=== PATIENT | female | born 1950 | race Hispanic/Latino ===

== ENCOUNTER 2018-05-13 16:11 | Emergency (ER) | payer MEDICARE ==
[2018-05-13] MEDS ORDERED: KETOROLAC TROMETHAMINE 30MG/ML ONE (16:50)
[2018-05-13] MEDS ORDERED: HYDROCODONE/ACETAMINOPHEN 10/325 MG TAB ONE (16:50)
== END 2018-05-13 17:48 | disposition home or self-care (01) ==
LOC: EDH 16:11
DX: M54.5 Low back pain (principal); E78.5 Hyperlipidemia, unspecified; I10 Essential (primary) hypertension; I12.0 Hypertensive chronic kidney disease with stage 5 chronic kidney disease or end stage renal disease; E11.22 Type 2 diabetes mellitus with diabetic chronic kidney disease; N18.6 End stage renal disease; Z79.4 Long term (current) use of insulin; Z91.041 Radiographic dye allergy status
CPT/HCPCS: 72100; 96372; 99284; J1885

== ENCOUNTER 2018-05-28 09:35 | Emergency (ER) | payer MEDICARE ==
[2018-05-28 10:20] LABS: BASOPHILS % (AUTO) 0.5 % (0.0-5.0); EOSINOPHILS % (AUTO) 0.4 % (0.0-8.0); HEMATOCRIT 33.4 % (36-48); LYMPHOCYTES % (AUTO) 10.9 % (21.0-51.0); MEAN CORPUSCULAR HEMOGLOBIN 28.5 pg (27.0-33.0); MEAN CORPUSCULAR HGB CONC 32.9 g/dL (32.0-36.0); MEAN CORPUSCULAR VOLUME 86.6 fL (79-99); MONOCYTES % (AUTO) 3.9 % (3.0-13.0); NEUTROPHILS % (AUTO) 84.3 % (40.0-77.0); PLATELET COUNT (AUTO) 255 K/uL (130-400); RED BLOOD CELL COUNT(AUTO) 3.86 MIL/uL (4.00-5.50); WHITE BLOOD COUNT (AUTO) 14.5 K/uL (4.8-10.8)
[2018-05-28 10:26] LABS: CREATININE 2.1 mg/dL (0.5-1.5); POTASSIUM 4.3 mmol/L (3.5-5.1)
[2018-05-28 10:31] LABS: ALBUMIN 3.9 g/dL (3.5-5.0); BILIRUBIN,TOTAL 0.3 mg/dL (0.2-1.0); TOTAL PROTEIN, SERUM 9.5 g/dL (6.0-8.3)
[2018-05-28 12:32] LABS: BILIRUBIN,URINE NEGATIVE (NEGATIVE); COLOR,URINE YELLOW (YELLOW); GLUCOSE, URINE (UA) NEGATIVE (NEGATIVE); KETONES,URINE NEGATIVE (NEGATIVE); LEUKOCYTE ESTERASE ,URINE SMALL (NEGATIVE); NITRATE,URINE POSITIVE (NEGATIVE); OCCULT BLOOD,URINE NEGATIVE (NEGATIVE); PROTEIN,URINE TRACE (NEGATIVE); UROBILINOGEN,URINE 0.2 mg/dL (0.2-1.0)
[2018-05-28 12:44] LABS: APPEARANCE,URINE HAZY (CLEAR)
[2018-05-28 12:47] LABS: BACTERIA,URINE Many /HPF (None Seen); RBC,URINE 0-1 /HPF (0-1)
[2018-05-28 12:48] LABS: HYALINE CASTS, URINE 0-1 /LPF (0-1 /LPF); SQUAMOUS EPITHELIAL CELL,UR Rare /HPF (0-2)
[2018-05-28] MEDS ORDERED: ACETAMINOPHEN EXTRA STRENGTH 500 MG TABLET ONE (13:55)
[2018-05-28] MEDS ORDERED: DEXAMETHASONE SOD PHOSPHATE 10MG/ML 1ML VIAL ONE (15:56)
== END 2018-05-28 16:29 | disposition home or self-care (01) ==
LOC: EDH 09:35
DX: M06.9 Rheumatoid arthritis, unspecified (principal); M79.602 Pain in left arm; E10.22 Type 1 diabetes mellitus with diabetic chronic kidney disease; M35.00 Sjogren syndrome, unspecified; I12.0 Hypertensive chronic kidney disease with stage 5 chronic kidney disease or end stage renal disease; N18.6 End stage renal disease; E78.5 Hyperlipidemia, unspecified; Z79.4 Long term (current) use of insulin; Z91.041 Radiographic dye allergy status
CPT/HCPCS: 36415; 73060; 80053; 81001; 82550; 84484; 85025; 86140; 93005; 96374; 99285; J1100

== ENCOUNTER 2018-07-14 11:47 | Emergency (ER) | payer MEDICARE ==
[2018-07-14] MEDS ORDERED: DEXAMETHASONE SOD PHOSPHATE 10MG/ML 1ML VIAL ONE (12:13)
[2018-07-14] MEDS ORDERED: HYDROMORPHONE 1 MG/1 ML AMP ONE (12:14)
== END 2018-07-14 13:06 | disposition home or self-care (01) ==
LOC: EDH 11:47
DX: M35.00 Sjogren syndrome, unspecified (principal); I12.0 Hypertensive chronic kidney disease with stage 5 chronic kidney disease or end stage renal disease; E11.22 Type 2 diabetes mellitus with diabetic chronic kidney disease; N18.6 End stage renal disease; E78.5 Hyperlipidemia, unspecified; M19.90 Unspecified osteoarthritis, unspecified site; Z91.041 Radiographic dye allergy status; Z90.49 Acquired absence of other specified parts of digestive tract; Z90.710 Acquired absence of both cervix and uterus; Z98.890 Other specified postprocedural states; Z99.2 Dependence on renal dialysis
CPT/HCPCS: 93005; 96372 ×2; 99283; J1100; J1170

== ENCOUNTER 2020-06-06 13:12 | Emergency (ER) | payer MEDICARE ==
[~2020-06-06 13:12] MED LIST: AEC81 PO; AMLO-257 PO; ATOR10TA69 PO; DOXA2TAB2 PO; LABE100T5 PO; PRAS10TA9 PO
[2020-06-06] MEDS ORDERED: ONDANSETRON HCL 4 MG/2 ML VIAL ONE (13:46)
[2020-06-06 13:51] LABS: BASOPHILS % (AUTO) 0.3 % (0.0-5.0); HEMATOCRIT 32.5 % (36-48); LYMPHOCYTES % (AUTO) 16.5 % (21.0-51.0); MEAN CORPUSCULAR HEMOGLOBIN 29.8 pg (27.0-33.0); MEAN CORPUSCULAR HGB CONC 33.2 g/dL (32.0-36.0); MEAN CORPUSCULAR VOLUME 89.5 fL (79-99); MONOCYTES % (AUTO) 5.3 % (3.0-13.0); NEUTROPHILS % (AUTO) 76.3 % (40.0-77.0); PLATELET COUNT (AUTO) 288 K/uL (130-400); RED BLOOD CELL COUNT(AUTO) 3.63 MIL/uL (4.00-5.50); RED CELL DISTRIBUTION WIDTH 11.8 % (11.0-15.5); WHITE BLOOD COUNT (AUTO) 9.4 K/uL (4.8-10.8)
[2020-06-06 14:03] LABS: APPEARANCE,URINE Clear (CLEAR); BILIRUBIN,URINE Small (NEGATIVE); COLOR,URINE Dark Yellow (YELLOW); GLUCOSE, URINE (UA) Negative (NEGATIVE); KETONES,URINE 15 mg/dL (NEGATIVE); LEUKOCYTE ESTERASE ,URINE Trace (NEGATIVE); NITRATE,URINE Negative (NEGATIVE); OCCULT BLOOD,URINE Negative (NEGATIVE); PH,URINE 5.5 (5.0-8.0); PROTEIN,URINE POS 2+ mg/dL (NEGATIVE)
[2020-06-06 14:08] LABS: CREATININE 1.3 mg/dL (0.5-1.5)
[2020-06-06 14:10] LABS: INR 0.99 (0.85-1.15); PARTIAL THROMBOPLASTIN TIME 23.3 SEC (26.3-35.5); PROTHROMBIN TIME 10.7 SEC (9.6-11.6)
[2020-06-06 14:12] LABS: ALBUMIN 3.7 g/dL (3.5-5.0); BILIRUBIN,TOTAL 0.4 mg/dL (0.2-1.0); TOTAL PROTEIN, SERUM 7.8 g/dL (6.0-8.3)
[2020-06-06 14:20] LABS: BACTERIA,URINE Few /HPF (None Seen); MUCUS,URINE Many LPF (None Seen); SQUAMOUS EPITHELIAL CELL,UR Few /HPF (0-2)
== END 2020-06-06 15:59 | disposition home or self-care (01) ==
LOC: EDH 13:12
DX: K52.89 Other specified noninfective gastroenteritis and colitis (principal); R10.31 Right lower quadrant pain; M19.90 Unspecified osteoarthritis, unspecified site; I12.9 Hypertensive chronic kidney disease with stage 1 through stage 4 chronic kidney disease, or unspecified chronic kidney disease; E11.22 Type 2 diabetes mellitus with diabetic chronic kidney disease; N18.9 Chronic kidney disease, unspecified; E78.5 Hyperlipidemia, unspecified; Z90.49 Acquired absence of other specified parts of digestive tract; Z90.710 Acquired absence of both cervix and uterus; Z91.041 Radiographic dye allergy status
CPT/HCPCS: 36415; 74176; 80053; 81001; 82550; 83690; 84484; 85025; 85610; 85730; 93005; 96361; 96374; 99285; J2405

== ENCOUNTER 2022-08-27 10:46 | Emergency (ER) | payer MEDICARE ==
[~2022-08-27] VITALS: Ht 160 cm; Wt 75.3 kg
[~2022-08-27 10:46] MED LIST changes: -LABE100T5 PO; +LABE100T7 PO
[2022-08-27] MEDS ORDERED: KETOROLAC 30MG VIAL (30MG/ML) IM STA (15:44)
[2022-08-27 15:59] VITALS: BP 183/74
[2022-08-27] MEDS ORDERED: TRIAMCINOLONE ACETONIDE 40 MG/ML 1ML VIAL SQ ONE (16:00)
== END 2022-08-27 16:37 | disposition home or self-care (01) ==
LOC: EDH 10:46
DX: G89.29 Other chronic pain (principal); M54.9 Dorsalgia, unspecified; M19.90 Unspecified osteoarthritis, unspecified site; E11.9 Type 2 diabetes mellitus without complications; E78.00 Pure hypercholesterolemia, unspecified; I10 Essential (primary) hypertension; Z79.82 Long term (current) use of aspirin; Z79.899 Other long term (current) drug therapy; Z88.8 Allergy status to other drugs, medicaments and biological substances; Z90.49 Acquired absence of other specified parts of digestive tract; Z90.710 Acquired absence of both cervix and uterus
CPT/HCPCS: 99284; 74176; 96372 ×2; J3301; J1885

== ENCOUNTER 2022-10-03 23:27 | Observation (INO) | payer MEDICARE ==
[~2022-10-03] VITALS: Ht 167.6 cm; Wt 74.8 kg
[2022-10-04 00:31] LABS: CREATININE 1.7 mg/dL (0.5-1.5); POTASSIUM 4.5 mmol/L (3.5-5.1)
[2022-10-04 00:35] LABS: TOTAL PROTEIN, SERUM 6.2 g/dL (6.0-8.3)
[2022-10-04 00:36] LABS: BASOPHILS % (AUTO) 0.4 % (0.0-5.0); EOSINOPHILS % (AUTO) 7.7 % (0.0-8.0); HEMATOCRIT 29.3 % (36-48); LYMPHOCYTES % (AUTO) 14.3 % (21.0-51.0); MEAN CORPUSCULAR HEMOGLOBIN 30.9 pg (27.0-33.0); MEAN CORPUSCULAR HGB CONC 32.1 g/dL (32.0-36.0); MEAN CORPUSCULAR VOLUME 96.4 fL (79-99); MONOCYTES % (AUTO) 4.8 % (3.0-13.0); NEUTROPHILS % (AUTO) 71.9 % (40.0-77.0); PLATELET COUNT (AUTO) 204 K/uL (130-400); RED BLOOD CELL COUNT(AUTO) 3.04 MIL/uL (4.00-5.50); RED CELL DISTRIBUTION WIDTH 12.3 % (11.0-15.5); WHITE BLOOD COUNT (AUTO) 10.9 K/uL (4.8-10.8)
[2022-10-04] MEDS ORDERED: GOLY4L PO (01:24)
[2022-10-04] MEDS ORDERED: MORPHINE 2 MG SYG IVP ONE (01:30)
[2022-10-04] MEDS ORDERED: MAGNESIUM HYDROXIDE 30 ML/UDCUP PO SCH (01:30)
[2022-10-04 01:41] LABS: APPEARANCE,URINE CLEAR (CLEAR); BILIRUBIN,URINE NEGATIVE (NEGATIVE); COLOR,URINE LIGHT-YELLOW (YELLOW); GLUCOSE, URINE (UA) NEGATIVE (NEGATIVE); KETONES,URINE NEGATIVE (NEGATIVE); LEUKOCYTE ESTERASE ,URINE NEGATIVE Leu/uL (NEGATIVE); NITRATE,URINE NEGATIVE (NEGATIVE); OCCULT BLOOD,URINE NEGATIVE (NEGATIVE); PROTEIN,URINE 20 mg/dL (NEGATIVE); UROBILINOGEN,URINE 0.2 mg/dL (0.2-1.0)
[2022-10-04] MEDS ORDERED: ENOXAPARIN SODIUM 80 MG/0.8 ML SQ ONE (04:00)
[2022-10-04] MEDS ORDERED: ACETAMINOPHEN 325 MG TAB PO PRN (04:00)
[2022-10-04] MEDS ORDERED: DEXTROSE 5 % AND 0.9 % NACL 1,000 ML IV SCH (04:00)
[2022-10-04] MEDS ORDERED: ONDANSETRON 4MG INJ IVP PRN (04:00)
[2022-10-04] MEDS ORDERED: MORPHINE 2 MG SYG IVP PRN (04:00)
[2022-10-04] MEDS ORDERED: LABE200T7 PO (04:12)
[2022-10-04] MEDS ORDERED: SOLI10TA7 PO (04:12)
[2022-10-04] MEDS ORDERED: MEMA5TAB42 PO (04:12)
[2022-10-04] MEDS ORDERED: INSU100I21 SQ (04:12)
[2022-10-04] MEDS ORDERED: LINA145C PO (04:12)
[2022-10-04] MEDS ORDERED: PENI500T2 PO (04:12)
[2022-10-04] MEDS ORDERED: ATOR10 PO (04:12)
[2022-10-04] MEDS ORDERED: METF-445 PO (04:12)
[2022-10-04] MEDS ORDERED: HYDR-4153 PO (04:12)
[2022-10-04] MEDS ORDERED: PANTOPRAZOLE 40 MG/VIAL ONE (04:42)
[2022-10-04 07:28] LABS: BASOPHILS % (AUTO) 0.3 % (0.0-5.0); EOSINOPHILS % (AUTO) 6.2 % (0.0-8.0); HEMATOCRIT 30.2 % (36-48); LYMPHOCYTES % (AUTO) 12.9 % (21.0-51.0); MEAN CORPUSCULAR HEMOGLOBIN 30.7 pg (27.0-33.0); MEAN CORPUSCULAR HGB CONC 32.8 g/dL (32.0-36.0); MEAN CORPUSCULAR VOLUME 93.5 fL (79-99); MONOCYTES % (AUTO) 5.9 % (3.0-13.0); NEUTROPHILS % (AUTO) 73.7 % (40.0-77.0); PLATELET COUNT (AUTO) 203 K/uL (130-400); RED BLOOD CELL COUNT(AUTO) 3.23 MIL/uL (4.00-5.50); RED CELL DISTRIBUTION WIDTH 12.4 % (11.0-15.5); WHITE BLOOD COUNT (AUTO) 9.4 K/uL (4.8-10.8)
[2022-10-04 07:41] LABS: ALBUMIN 3.2 g/dL (3.5-5.0); CREATININE 1.3 mg/dL (0.5-1.5); POTASSIUM 4.5 mmol/L (3.5-5.1); TOTAL PROTEIN, SERUM 6.5 g/dL (6.0-8.3)
[2022-10-04 07:52] LABS: HEMOGLOBIN A1C 7.7 % (4.0-6.0)
[2022-10-04] MEDS: LACTULOSE 20 GM/30 ML UDCUP PO SCH ×4 (09:00→20:37)
[2022-10-04] MEDS ORDERED: AMLODIPINE 5 MG TAB PO ONE (11:00)
[2022-10-04] MEDS: HYDRALAZINE 25MG TABLET PO SCH ×2 (11:01→20:36)
[2022-10-04 15:33] VITALS: BP 186/72
[2022-10-04 19:14] VITALS: BP 168/74
[2022-10-04] MEDS: MEMANTINE HCL 5 MG TABLET PO SCH (20:37)
[2022-10-04] MEDS: ATORVASTATIN 10 MG TABLET PO SCH (20:37)
[2022-10-04] MEDS: METFORMIN HCL 850 MG TABLET PO SCH (20:37)
[2022-10-04] MEDS: LABETALOL HCL 200 MG TABLET PO SCH (20:37)
[2022-10-04] MEDS: INSULIN GLARGINE 100 UNITS/ML 10 ML VIAL SQ SCH (20:38)
[2022-10-04 22:30] VITALS: BP 151/69
[2022-10-05 02:26] VITALS: BP 162/74
[2022-10-05 04:25] LABS: HEMATOCRIT 31.8 % (36-48); MEAN CORPUSCULAR HEMOGLOBIN 30.9 pg (27.0-33.0); MEAN CORPUSCULAR HGB CONC 31.8 g/dL (32.0-36.0); MEAN CORPUSCULAR VOLUME 97.2 fL (79-99); RED BLOOD CELL COUNT(AUTO) 3.27 MIL/uL (4.00-5.50); RED CELL DISTRIBUTION WIDTH 12.3 % (11.0-15.5); WHITE BLOOD COUNT (AUTO) 8.6 K/uL (4.8-10.8)
[2022-10-05 04:49] LABS: ALANINE AMINOTRANSFERASE 142 U/L (12-78); ALBUMIN 3.1 g/dL (3.5-5.0); ASPARTATE AMINOTRANSFERASE 84 U/L (10-37); CARBON DIOXIDE 27 mmol/L (21-32); CHLORIDE 105 mmol/L (101-111); CREATININE 1.1 mg/dL (0.5-1.5); GLOMERULAR FILTR. RATE CALC 52 mL/min (>60); GLUCOSE,RANDOM 119 mg/dL (70-105); POTASSIUM 4.1 mmol/L (3.5-5.1); SODIUM SERUM 139 mmol/L (136-145); TOTAL PROTEIN, SERUM 6.5 g/dL (6.0-8.3); UREA NITROGEN, BLOOD 16 mg/dL (7-18)
[2022-10-05 04:58] LABS: LIPASE < 50 U/L (114-286)
[2022-10-05 07:26] VITALS: BP 162/72
[2022-10-05] MEDS: LABETALOL HCL 200 MG TABLET PO SCH ×2 (08:29→21:31)
[2022-10-05] MEDS: LACTULOSE 20 GM/30 ML UDCUP PO SCH (08:29)
[2022-10-05] MEDS: AMLODIPINE 5 MG TAB PO SCH (08:29)
[2022-10-05] MEDS: HYDRALAZINE 25MG TABLET PO SCH ×3 (08:29→21:31)
[2022-10-05] MEDS: INSULIN GLARGINE 100 UNITS/ML 10 ML VIAL SQ SCH ×2 (08:47→21:33)
[2022-10-05] MEDS: **HM**(Linaclotide (Linzess) 145 MCG PO SCH (09:00)
[2022-10-05] MEDS: MEMANTINE HCL 5 MG TABLET PO SCH ×2 (09:07→21:34)
[2022-10-05] MEDS: METFORMIN HCL 850 MG TABLET PO SCH (09:07)
[2022-10-05] MEDS: ENOXAPARIN SODIUM 30 MG/0.3 ML SQ SCH (09:07)
[2022-10-05 12:10] VITALS: BP 147/66
[2022-10-05] MEDS ORDERED: LACTULOSE 20 GM/30 ML UDCUP PO PRN (14:30)
[2022-10-05 16:00] VITALS: BP 166/67
[2022-10-05 19:50] VITALS: BP 149/68
[2022-10-05] MEDS: ATORVASTATIN 10 MG TABLET PO SCH (21:31)
[2022-10-06 00:03] VITALS: BP 147/70
[2022-10-06 03:27] VITALS: BP 146/74
[2022-10-06 06:22] LABS: HEMATOCRIT 30.3 % (36-48); MEAN CORPUSCULAR HEMOGLOBIN 30.6 pg (27.0-33.0); MEAN CORPUSCULAR HGB CONC 32.7 g/dL (32.0-36.0); MEAN CORPUSCULAR VOLUME 93.5 fL (79-99); RED BLOOD CELL COUNT(AUTO) 3.24 MIL/uL (4.00-5.50); RED CELL DISTRIBUTION WIDTH 12.1 % (11.0-15.5); WHITE BLOOD COUNT (AUTO) 8.8 K/uL (4.8-10.8)
[2022-10-06 07:19] LABS: MAGNESIUM 1.9 mg/dL (1.80-2.40); POTASSIUM 4.1 mmol/L (3.5-5.1); TOTAL PROTEIN, SERUM 6.4 g/dL (6.0-8.3)
[2022-10-06 07:40] VITALS: BP 164/76
[2022-10-06] MEDS: METFORMIN HCL 850 MG TABLET PO SCH ×2 (08:00→09:11)
[2022-10-06] MEDS: **HM**(Linaclotide (Linzess) 145 MCG PO SCH (09:00)
[2022-10-06] MEDS: LABETALOL HCL 200 MG TABLET PO SCH (09:10)
[2022-10-06] MEDS: ENOXAPARIN SODIUM 30 MG/0.3 ML SQ SCH (09:10)
[2022-10-06] MEDS: MEMANTINE HCL 5 MG TABLET PO SCH (09:11)
[2022-10-06] MEDS: HYDRALAZINE 25MG TABLET PO SCH ×2 (09:11→11:00)
[2022-10-06] MEDS: AMLODIPINE 5 MG TAB PO SCH (09:11)
[2022-10-06] MEDS: INSULIN GLARGINE 100 UNITS/ML 10 ML VIAL SQ SCH (09:19)
[2022-10-06 11:31] VITALS: BP 153/68
== END 2022-10-06 15:35 | disposition home or self-care (01) ==
LOC: EDH 23:27 → INTOOBSV 10-04 01:50 → EDHIP 10-04 01:50 → WSH 10-04 15:25
PROVIDERS: ADMIT Internal Medicine Infectious Disease; ATTEND Internal Medicine Infectious Disease
DX: K59.00 Constipation, unspecified (principal); K85.90 Acute pancreatitis without necrosis or infection, unspecified; E86.0 Dehydration; N17.9 Acute kidney failure, unspecified; R10.9 Unspecified abdominal pain; R79.89 Other specified abnormal findings of blood chemistry; D72.829 Elevated white blood cell count, unspecified; I10 Essential (primary) hypertension; E11.9 Type 2 diabetes mellitus without complications; E78.00 Pure hypercholesterolemia, unspecified; F03.90 Unspecified dementia, unspecified severity, without behavioral disturbance, psychotic disturbance, mood disturbance, and anxiety; Z90.710 Acquired absence of both cervix and uterus; Z79.899 Other long term (current) drug therapy; Z98.890 Other specified postprocedural states; Z90.49 Acquired absence of other specified parts of digestive tract; Z79.82 Long term (current) use of aspirin
CPT/HCPCS: 99285; 74176; 93005; 80053 ×4; 96374; 96372 ×3; 96361; 96375; 83036; 84484; 83690 ×2; 85025 ×2; 82948 ×7; 81003; 36415 ×4; 83735 ×2; 85027 ×2; 76700; J2405; J1650 ×3; C9113; G0378 ×29; J7042

== ENCOUNTER → 2022-11-10 | Outpatient (CLI) | payer MEDICARE ==
[~2022-11-10] MED LIST changes: +ATOR10 PO; +GADOTERATE MEGLUMINE 5 MMOL/10 ML VIAL IV ONE; +GOLY4L PO; +HYDR-4153 PO; +INSU100I22 SQ; +LABE200T7 PO; +LINA145C PO; +MEMA5TAB42 PO; +METF-445 PO; +PENI500T2 PO; +SOLI10TA7 PO
== END | disposition home or self-care (01) ==
LOC: RAH 07:44
PROVIDERS: ATTEND Internal Medicine Gastroenterology
DX: R94.5 Abnormal results of liver function studies (principal); Z90.49 Acquired absence of other specified parts of digestive tract
CPT/HCPCS: 74183; A9575

== ENCOUNTER → 2023-01-26 | Outpatient (CLI) | payer MEDICARE ==
[~2023-01-26] MED LIST changes: -GADOTERATE MEGLUMINE 5 MMOL/10 ML VIAL IV ONE
== END | disposition home or self-care (01) ==
LOC: RAH 09:27
PROVIDERS: ATTEND Physical Medicine & Rehabilitation
DX: M48.062 Spinal stenosis, lumbar region with neurogenic claudication (principal); M47.816 Spondylosis without myelopathy or radiculopathy, lumbar region
CPT/HCPCS: 72148

== ENCOUNTER 2024-12-19 07:01 | Emergency (ER) | payer MEDICARE ==
[~2024-12-19] VITALS: Ht 160 cm; Wt 62.6 kg
[~2024-12-19 07:01] MED LIST changes: -HYDR-4153 PO; +HYDR25TA67 PO; +MEMA5TAB16 PO; -MEMA5TAB42 PO
--- NOTE | 2024-12-19 07:28 | ERN ---
General Chief Complaint: Abdominal Pain Stated Complaint: ABDOMINAL PAIN Time Seen by MD: 07:04 Source: patient History of Present Illness Initial Comments Patient is a 74-year-old female coming in with the abdominal diarrhea. Patient states that she has been going to the restroom several times loose stools. No fever or chills no nausea or vomiting. Allergies: Coded Allergies: Iodine and Iodide Containing Produc (Verified Allergy, Unknown, 05/31/20) Home Meds Active Scripts Peg 3350/Na Sulf,Bicarb,Cl/KCl (Golytely/Colyte Soln) 1 Ml Soln, 4000 ML PO ONCE, #4000 ML Prov:YAZMIN KNOX MD 10/04/22 Amlodipine Besylate (Amlodipine Besylate) 5 Mg Tablet, 7.5 MG PO DAILY for 90 Days, #135 TAB 3 Refills Prov:AIRAM VALDES MD 06/02/20 Doxazosin Mesylate (Doxazosin Mesylate) 2 Mg Tablet, 2 MG PO DAILY for 90 Days, #90 TAB 3 Refills Prov:AIRAM VADLES MD 06/02/20 Labetalol HCl (Labetalol HCl) 100 Mg Tablet, 100 MG PO BID for 90 Days, #180 TAB 3 Refills Prov:AIRAM VALDES MD 06/02/20 Aspirin (ASPIRIN 81 MG ECTAB) 81 Mg Ectab, 81 MG PO DAILY for 90 Days, #90 TAB.EC 3 Refills Prov:AIRAM VALDES MD 06/02/20 Prasugrel HCl (Prasugrel HCl) 10 Mg Tablet, 10 MG PO DAILY for 90 Days, #90 TAB 3 Refills Prov:AIRAM VALDES MD 06/02/20 Atorvastatin Calcium (Atorvastatin Calcium) 10 Mg Tablet, 10 MG PO DAILY for 90 Days, #90 TAB 3 Refills Prov:AIRMA VALDES MD 06/02/20 Reported Medications Labetalol HCl (Labetalol HCl) 200 Mg Tablet, 200 MG PO BID, TAB 10/04/22 Hydralazine HCl (Hydralazine HCl) 25 Mg Tablet, 25 MG PO BID, TAB 10/04/22 Penicillin V Potassium (Penicillin V Potassium) 500 Mg Tablet, 500 MG PO [id number], TAB 10/04/22 Metformin HCl (Metformin HCl) 850 Mg Tablet, 850 MG PO BID, TAB 10/04/22 Linaclotide (Linzess) 145 Mcg Capsule, 145 MCG PO DAILY, CAP 10/04/22 Memantine HCl (Memantine HCl) 5 Mg Tablet, 5 MG PO BID, TAB 10/04/22 Solifenacin Succinate (Solifenacin Succinate) 10 Mg Tablet, 10 MG PO DAILY, TAB 10/04/22 Atorvastatin Calcium (LIPITOR) 10 Mg Tab, 10 MG PO HS, TAB 10/04/22 Insulin Detemir (Levemir Flextouch) 100 Unit/1 Ml Insuln.pen, 30 UNIT SQ BID, SYRINGE 10/04/22 Past Medical History Past Medical History: CAD, Diabetes-Type II, Hypertension Medical History Other: Dementia Past Surgical History: Unknown Family History Family History: HTN Social History Social History: Negative, Lives with family ROS Dictation CONSTITUTIONAL: No chills, no fever, no weakness, no diaphoresis, no malaise. HEAD/FACE: No signs of trauma. EENT: No eye pain, no blurred vision, no tearing, no double vision, no ear pain, no ear discharge, no nose pain, no nasal congestion, no throat pain, no throat swelling, no mouth pain. RESPIRATORY: No cough, no orthopnea, no SOB, no stridor, no wheezing. CARDIOVASCULAR: No chest pain, no edema, no palpitations, no syncope. GASTROINTESTINAL/ABDOMINAL: No abdominal pain, no constipation, no diarrhea, no nausea, no vomiting. GENITOURINARY: No abnormal discharge, no dysuria, no frequent urination, no hematuria. No complaints of pain in the genitals. MUSCULOSKELETAL: No back pain, no gout, no joint pain, no joint swelling, no muscle pain, no muscle stiffness, no neck pain. INTEGUMENTARY: No change in color, no change in hair/nails, no dryness, no lesion, no lumps, no rash. NEUROLOGICAL/PSYCH: No anxiety, not depressed, no emotional problem, no headache, no numbness, no pre-existing deficit, no history of seizures, no tremors, no weakness. HEMATOLOGIC/LYMPHATIC: Not anemic, no history of blood clots, no apparent bleeding, no bruising, glands not swollen. All Systems Negative, Except as Noted. Physical Exam Physical Exam Dictation VITAL SIGNS: Reviewed. GENERAL APPEARANCE: Alert, oriented x3, no acute distress, obese. HEAD AND FACE: Non-traumatic. EYES: PERRL, pink conjunctivas, eyelid no trauma, anterior chamber clear. EARS: Pinnas intact and no signs of trauma or erythema. Ear canals clear and no discharge. TMs no erythema. NOSE: No discharge, no bleeding. OROPHARYNX: Mouth normal, teeth no caries, tongue pink. Pharynx clear, no erythema. Tonsils no exudates, no abscesses noted. Mucous membrane moist. NECK: Supple, non-tender, no thyromegaly, no masses, no JVD, no bruits. BREAST: Deferred. CHEST: No tenderness, no crepitus, no paradoxical movement, no retractions. LUNGS: Clear, well-ventilated, symmetric, no rales, no wheezing, no rhonchi, no stridor, good breath sounds bilaterally. HEART: Regular rate, regular rhythm, no murmur, no gallops. VASCULAR: No peripheral edema. ABDOMEN: Soft, positive bowel sounds, nondistended, no guarding, nontender, no rebound, no masses no hepatomegaly, no splenomegaly, no Nguyen's sign, no hernias. RECTAL: Deferred. GENITAL: Deferred. NEUROLOGICAL: Normal speech, gross motor function intact, gross sensory function intact. MUSCULOSKELETAL: Neck nontender, full range of motion, back nontender, full range of motion. EXTREMITIES: Nontender, full range of motion. SKIN: Color pink, dry, no turgor, no rash, no lacerations, no abrasions, no contusions. LYMPHATICS: Deferred. Results Laboratory and Microbiology Lab and Micro Result Laboratory Tests Test 12/19/24 07:43 12/19/24 07:52 White Blood Count 9.6 K/uL (4.8-10.8) Red Blood Count 4.13 MIL/uL (4.00-5.50) Hemoglobin 12.9 g/dL (12.0-16.0) Hematocrit 39.7 % (36-48) Mean Corpuscular Volume 96.1 fL (79-99) Mean Corpuscular Hemoglobin 31.2 pg (27.0-33.0) Mean Corpuscular Hemoglobin Concent 32.5 g/dL (32.0-36.0) Red Cell Distribution Width 12.2 % (11.0-15.5) Platelet Count 223 K/uL (130-400) Mean Platelet Volume 10.5 fL (7.5-10.5) Immature Granulocyte % (Auto) 0.3 % (0-1) Neutrophils (%) (Auto) 80.7 % (40.0-77.0) H Lymphocytes (%) (Auto) 13.8 % (21.0-51.0) L Monocytes (%) (Auto) 4.5 % (3.0-13.0) Eosinophils (%) (Auto) 0.4 % (0.0-8.0) Basophils (%) (Auto) 0.3 % (0.0-5.0) Neutrophils # (Auto) 7.7 K/uL (1.8-7.7) Lymphocytes # (Auto) 1.3 K/uL (1.0-4.8) Monocytes # (Auto) 0.4 K/uL (0.1-1.0) Eosinophils # (Auto) 0.04 K/uL (0.00-0.70) Basophils # (Auto) 0.03 K/uL (0.00-0.20) Absolute Immature Granulocyte (auto 0.03 K/uL (0-1) Nucleated Red Blood Cells 0.0 % (0.0-0.19) Sodium Level 137 mmol/L (136-145) Potassium Level 3.4 mmol/L (3.5-5.1) L Chloride Level 102 mmol/L (101-111) Carbon Dioxide Level 27 mmol/L (21-32) Blood Urea Nitrogen 35 mg/dL (7-18) H Creatinine 1.5 mg/dL (0.5-1.0) H Glomerular Filtration Rate Calc 37 mL/min (>90) Random Glucose 170 mg/dL (70-105) H Total Calcium 9.8 mg/dL (8.5-10.1) Total Bilirubin 0.3 mg/dL (0.2-1.0) Aspartate Amino Transf (AST/SGOT) 24 U/L (10-37) Alanine Aminotransferase (ALT/SGPT) 35 U/L (12-78) Alkaline Phosphatase 120 U/L (50-136) Total Creatine Kinase 53 U/L (21-232) # Troponin I High Sensitivity < 4 ng/L (4-50) L Total Protein 8.1 g/dL (6.0-8.3) Albumin 4.3 g/dL (3.5-5.0) Lipase 31 U/L (16-77) Urine Color YELLOW (YELLOW) Urine Appearance CLEAR (CLEAR) Urine pH 5.5 (5.0-8.0) Urine Specific [place] 1.035 (1.001-1.031) Urine Protein 20 mg/dL (NEGATIVE) H Urine Glucose (UA) >=1000 mg/dL (NEGATIVE) H Urine Ketones NEGATIVE mg/dL (NEGATIVE) Urine Occult Blood NEGATIVE (NEGATIVE) Urine Nitrate NEGATIVE (NEGATIVE) Urine Bilirubin NEGATIVE mg/dL (NEGATIVE) Urine Urobilinogen 0.2 mg/dL (0.2-1.0) Urine Leukocyte Esterase 250 [place]/uL (NEGATIVE) H Urine RBC 2-5 /HPF (0-1) H Urine WBC 6-10 /HPF (0-1) H Urine Squamous Epithelial Cells FEW /HPF (0-2) Urine Other Crystals (Auto) 3 /HPF (None Seen) Urine Bacteria RARE /HPF (None Seen) Labs Reviewed?: Yes EKG/XRAY/US/CT/MRI EKG Comment 01/11/2025 time 7:23 a.m. Ventricular rate 65 Sinus rhythm MS [address] wave elevation or depression CT Scan Comment [place] [id number] [address] IMAGING REPORT Signed PATIENT: TIMMY CORLEY MR#: [id number] : 1950 SEX: F AGE: 74 LOCATION: ED ORDER [id number] STATUS: REG ER REPORT#: [id number] SERVICE 1038 REASON: LUQ PAIN ORDERING PHYSICIAN: IRENE CESAR MD PROCEDURE: ABD PEL WO - CT ABDOMEN/PELVIS W/O CONTRAST CT ABDOMEN/PELVIS W/O CONTRAST HISTORY: Upper quadrant pain COMPARISON: 10/04/2022 TECHNIQUE: Multiple sequential axial images of the abdomen and pelvis were obtained from the dome of the diaphragm through symphysis pubis. Patient was not given contrast through intravenous route. Oral contrast was not given. FINDINGS: No pleural effusion is seen bilaterally. There is no evidence of parenchymal disease or pulmonary nodule of the visualized lower lungs. Degenerative changes of the thoracolumbar spine are present. The heart is not enlarged. The liver measured 15.4 cm. There is gastric distention with small bowel dictation. There is fluid-filled small bowel loops and colon suspicious for enterocolitis. The spleen, adrenal glands and pancreas are unremarkable. There is no evidence of hydronephrosis bilaterally. No evidence of renal stone is seen. Fecal material is seen in the colon. There are normal size retroperitoneal and mesenteric lymph nodes. No ascites is seen. Atherosclerotic changes are present. No CT evidence of acute appendicitis is seen. Pelvic sidewalls are symmetric bilaterally. Bladder is well distended without wall thickening. IMPRESSION: 1. There is fluid-filled small bowel loops and colon may be related to enterocolitis. CT was performed with one or more following dose reduction techniques: automated exposure control, adjustment of the mA and kv according to patient's size, or use of a iterative reconstruction technique. DICTATED BY: MIRZA SMYTH MD DATE: 12/19/24 1155 ELECTRONICALLY SIGNED BY: MIRZA SMYTH MD DATE: 12/19/24 1200 MDM MDM: Differential diagnosis: SO ENTERITIS, SMALL-BOWEL OBSTRUCTION, GERD, Rationale: Tests considered and ordered secondary to shared decision making include: Previous outside records reviewed: Old ER visits. Risk of complication and/or morbidity or mortality of patient management: None Medications-Per medication reconciliation Need for hospitalization: Patient does not meet criteria for hospitalization. PATIENT IS A 74-YEAR-OLD FEMALE COMING IN TO BE EVALUATED FOR ABDOMINAL DISCOMFORT AND DIARRHEA. CT DID NOT DISCLOSE ACUTE FINDINGS BESIDES ENTEROCOLITIS. PATIENT WILL BE DISCHARGED IN STABLE CONDITION WITH A DIAGNOSIS OF GASTROENTERITIS. ED Course Orders Procedure Category Date Status Time Cbc With Differential LAB 12/19/24 Complete 07:10 Troponin I High LAB 12/19/24 Complete Sensitivity 07:10 Urinalysis Profile LAB 12/19/24 Complete 07:10 12 Lead Ekg Tracing- EKG 12/19/24 Complete Technical 07:10 Lactated Ringers PHA 12/19/24 Complete 1000ml (Lactated 07:30 Ondansetron 4mg Inj PHA 12/19/24 Complete (Zofran 4mg Inj) 07:30 Pantoprazole 40mg Inj PHA 12/19/24 Complete (Protonix 40mg Inj 07:30 Creatine Kinase, Total LAB 12/19/24 Complete 07:10 Lipase LAB 12/19/24 Complete 07:10 Dicyclomine Hcl PHA 12/19/24 Complete (Bentyl 20mg Inj) 07:30 Comprehensive LAB 12/19/24 Complete Metabolic Panel 07:43 Culture Urine HUNTER 12/19/24 In Process 08:31 Potassium Bicarb/Cit PHA 12/19/24 Complete Ac 25meq (K-Lyte Ta 09:00 Ceftriaxone 1g Vial PHA 12/19/24 Complete (Rocephine 1g Inj) 09:00 Lidocaine Hcl 2% PHA 12/19/24 Complete Viscous (Lidocaine Hcl 09:00 Mag/Alum/Simeth 30ml PHA 12/19/24 Complete (Maalox Plus 30ml) 09:00 Ct Abdomen/Pelvis W/O CT 12/19/24 Resulted Contrast 10:38 Current Medications Medications (Trade) Dose Ordered Sig/Ethan Route PRN Reason Start Time Stop Time Status Last Admin Dose Admin Al Hydroxide/Mg Hydroxide (MAALox PLUS 30ML) 30 ml ONCE ONCE PO 12/19/24 09:00 12/19/24 09:01 DC 12/19/24 09:48 Ceftriaxone Sodium (ROCEphine 1G INJ) 1 gm ONCE ONCE IVPB 12/19/24 09:00 12/19/24 09:01 DC 12/19/24 09:48 Dicyclomine HCl (Bentyl 20mg Inj) 10 mg ONCE ONCE IM 12/19/24 07:30 12/19/24 07:31 DC 12/19/24 07:34 Lactated Ringer's 1,000 ml @ 0 mls/hr ONCE ONCE IV 12/19/24 07:30 12/19/24 07:31 DC 12/19/24 07:33 Lidocaine HCl (Lidocaine HCl 2% Viscous) 10 ml ONCE ONCE PO 12/19/24 09:00 12/19/24 09:01 DC 12/19/24 09:48 Ondansetron HCl (zoFRAN 4MG INJ) 4 mg ONCE ONCE IVP 12/19/24 07:30 12/19/24 07:31 DC 12/19/24 07:33 Pantoprazole Sodium (PROTonix 40MG INJ) 40 mg ONCE ONCE IVP 12/19/24 07:30 12/19/24 07:31 DC 12/19/24 07:33 Potassium Bicarbonate (K-Lyte Tablet Eff 25 Meq Tablet.eff) 25 meq ONCE ONCE PO 12/19/24 09:00 12/19/24 09:01 DC 12/19/24 09:48 Vital Signs Date Time Temp Pulse Resp B/P (MAP) Pulse Ox O2 Delivery O2 Flow Rate FiO2 12/19/24 10:00 97.7 74 18 171/65 99 Room Air* 0 21 12/19/24 09:00 97.7 66 18 194/77 96 Room Air* 0 21 12/19/24 08:00 97.7 61 18 169/63 99 Room Air* 0 21 12/19/24 07:20 97.7 71 18 127/60 97 Room Air* 0 21 12/19/24 07:05 97.7 71 18 127/60 97 Room Air 0 DX & DISP Disposition: Discharge Departure Impression: Primary Impression: Gastroenteritis Additional Impression: Dehydration Condition: Stable Scripts Dicyclomine HCl (Bentyl) 10 Mg Cap 1 CAP PO BID PRN for ABDOMINAL CRAMPING for 5 Days, #10 CAP 0 Refills Prov: IRENE CESAR MD 12/19/24 Pantoprazole Sodium (Protonix) 40 Mg Ectab 1 TAB PO DAILY for 30 Days, #30 TAB 0 Refills Prov: IRENE CESAR MD 12/19/24 Additional Instructions: FOLLOW-UP WITH PRIMARY CARE PROVIDER IN 1 TO 2 DAYS. TAKE MEDICATIONS DIRECTED HERE IN THE EMERGENCY ROOM. OKAY TO CONTINUE HOME MEDICATIONS UNLESS OTHERWISE DISCUSSED DURING YOUR VISIT IN THE EMERGENCY ROOM TODAY. RETURN TO YOUR NEAREST EMERGENCY ROOM IF SYMPTOMS WORSEN OR IF THERE IS NO IMPROVEMENT. CALL 911 IF YOU NEED IMMEDIATE ASSISTANCE. TAKE TYLENOL [id number] NEEDED AND IF NO CONTRAINDICATIONS ARE PRESENT. INCREASE ORAL HYDRATION. A WOUND CULTURE OR URINE CULTURE WAS ORDERED HERE IN THE EMERGENCY ROOM DEPARTMENT PLEASE FOLLOW-UP WITH PRIMARY CARE PROVIDER AND ADVISE THEM TO GET REPEAT PORTS FROM OUR FACILITY. IF YOU HAD ANY RODRIGUEZ WRAP/SPLINTS THAT WERE APPLIED HERE, PLEASE DO NOT REMOVE THEM UNTIL YOU SEE YOUR PRIMARY CARE OR SPECIALTY. REFERRALS: Referrals: ALONA RINALDI MD (PCP) Time of Disposition: 12:06 IRENE CESAR MD December 19, 2024 07:28
--- NOTE | 2024-12-19 07:28 | EKG ---
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
[2024-12-19] MEDS: ondanSETRON 4MG INJ IVP ONE (07:33)
[2024-12-19] MEDS: PANTOPrazole 40 MG/VIAL IVP ONE (07:33)
[2024-12-19] MEDS: LACTATED RINGERS 1000ML 1,000 ML IV ONE (07:33)
[2024-12-19] MEDS: DICYCLOMINE 20MG (10MG/ML) AMP IM ONE (07:34)
[2024-12-19 07:53] LABS: BASOPHILS # (AUTO) 0.03 K/uL (0.00-0.20); BASOPHILS % (AUTO) 0.3 % (0.0-5.0); EOSINOPHILS # (AUTO) 0.04 K/uL (0.00-0.70); EOSINOPHILS % (AUTO) 0.4 % (0.0-8.0); HEMATOCRIT 39.7 % (36-48); IMMATURE GRANULOCYTE ABSOLUTE 0.03 K/uL (0-1); LYMPHOCYTES # (AUTO) 1.3 K/uL (1.0-4.8); LYMPHOCYTES % (AUTO) 13.8 % (21.0-51.0); MEAN CORPUSCULAR HEMOGLOBIN 31.2 pg (27.0-33.0); MEAN CORPUSCULAR HGB CONC 32.5 g/dL (32.0-36.0); MEAN CORPUSCULAR VOLUME 96.1 fL (79-99); MONOCYTES # (AUTO) 0.4 K/uL (0.1-1.0); MONOCYTES % (AUTO) 4.5 % (3.0-13.0); NEUTROPHILS # (AUTO) 7.7 K/uL (1.8-7.7); NEUTROPHILS % (AUTO) 80.7 % (40.0-77.0); PLATELET COUNT (AUTO) 223 K/uL (130-400); RED BLOOD CELL COUNT(AUTO) 4.13 MIL/uL (4.00-5.50); RED CELL DISTRIBUTION WIDTH 12.2 % (11.0-15.5); WHITE BLOOD COUNT (AUTO) 9.6 K/uL (4.8-10.8)
[2024-12-19 08:11] LABS: ALBUMIN 4.3 g/dL (3.5-5.0); BILIRUBIN,TOTAL 0.3 mg/dL (0.2-1.0); CREATININE 1.5 mg/dL (0.5-1.0); POTASSIUM 3.4 mmol/L (3.5-5.1); TOTAL PROTEIN, SERUM 8.1 g/dL (6.0-8.3)
[2024-12-19 08:15] LABS: ADD UA MICROSCOPIC YES
[2024-12-19 08:16] LABS: APPEARANCE,URINE CLEAR (CLEAR); BACTERIA,URINE RARE /HPF (None Seen); BILIRUBIN,URINE NEGATIVE (NEGATIVE); COLOR,URINE YELLOW (YELLOW); GLUCOSE, URINE (UA) >=1000 mg/dL (NEGATIVE); KETONES,URINE NEGATIVE (NEGATIVE); LEUKOCYTE ESTERASE ,URINE 250 Leu/uL (NEGATIVE); NITRATE,URINE NEGATIVE (NEGATIVE); OCCULT BLOOD,URINE NEGATIVE (NEGATIVE); PH,URINE 5.5 (5.0-8.0); PROTEIN,URINE 20 mg/dL (NEGATIVE); SQUAMOUS EPITHELIAL CELL,UR FEW /HPF (0-2); UNCLASSIFIED CRYSTAL 3 /HPF (None Seen); UROBILINOGEN,URINE 0.2 mg/dL (0.2-1.0)
--- NOTE | 2024-12-19 09:30 | NUR ---
PT TOOK HER HOME MEDICATIONS AMILODIPINE AND LABETALOL.
[2024-12-19] MEDS: cefTRIAXone 1G VIAL IVPB ONE (09:48)
[2024-12-19] MEDS: LIDOCAINE HCL 2% VISCOUS 15 ML UDCUP PO ONE (09:48)
[2024-12-19] MEDS: PoTASSium BIcarbonate/CIT AC 25 MEQ TABLET.EFF PO ONE (09:48)
[2024-12-19] MEDS: MAG/ALUM/SIMETH 30 ML UDCUP PO ONE (09:48)
--- NOTE | 2024-12-19 12:00 | HMCIMG ---
CT ABDOMEN/PELVIS W/O CONTRAST HISTORY: Upper quadrant pain COMPARISON: 10/04/2022 TECHNIQUE: Multiple sequential axial images of the abdomen and pelvis were obtained from the dome of the diaphragm through symphysis pubis. Patient was not given contrast through intravenous route. Oral contrast was not given. FINDINGS: No pleural effusion is seen bilaterally. There is no evidence of parenchymal disease or pulmonary nodule of the visualized lower lungs. Degenerative changes of the thoracolumbar spine are present. The heart is not enlarged. The liver measured 15.4 cm. There is gastric distention with small bowel dictation. There is fluid-filled small bowel loops and colon suspicious for enterocolitis. The spleen, adrenal glands and pancreas are unremarkable. There is no evidence of hydronephrosis bilaterally. No evidence of renal stone is seen. Fecal material is seen in the colon. There are normal size retroperitoneal and mesenteric lymph nodes. No ascites is seen. Atherosclerotic changes are present. No CT evidence of acute appendicitis is seen. Pelvic sidewalls are symmetric bilaterally. Bladder is well distended without wall thickening. IMPRESSION: 1. There is fluid-filled small bowel loops and colon may be related to enterocolitis. CT was performed with one or more following dose reduction techniques: automated exposure control, adjustment of the mA and kv according to patient's size, or use of a iterative reconstruction technique.
[2024-12-19] MEDS ORDERED: DICY10 PO (12:08)
[2024-12-19] MEDS ORDERED: PANT40TA55 PO (12:08)
[2024-12-19 13:40] VITALS: BP 160/63; PULSE 73; RESP 16; TEMP 98; O2SAT 98
== END 2024-12-19 13:47 | disposition home or self-care (01) ==
LOC: EDH 07:01
DX: K52.9 Noninfective gastroenteritis and colitis, unspecified (principal); E86.0 Dehydration; E11.9 Type 2 diabetes mellitus without complications; F03.90 Unspecified dementia, unspecified severity, without behavioral disturbance, psychotic disturbance, mood disturbance, and anxiety; I10 Essential (primary) hypertension; I25.10 Atherosclerotic heart disease of native coronary artery without angina pectoris; Z79.02 Long term (current) use of antithrombotics/antiplatelets; Z79.4 Long term (current) use of insulin; Z79.82 Long term (current) use of aspirin; Z79.84 Long term (current) use of oral hypoglycemic drugs; Z79.899 Other long term (current) drug therapy; Z88.8 Allergy status to other drugs, medicaments and biological substances; Z91.041 Radiographic dye allergy status
CPT/HCPCS: 99285; 74176; 96374; 96361; 96375; 82550; 84484; 80053; 83690; 85025; 87086 ×2; 87186; 81001; 36415; 96372; 93005; J7120; J0696; J2405; J2470; J0500

== ENCOUNTER → 2025-03-24 | Outpatient (CLI) | payer MEDICARE, MEDICAID ==
[~2025-03-24] MED LIST changes: +DICY10 PO; +PANT40TA55 PO
[2025-03-24] MEDS: REGADENOSON 0.4 MG/5 ML PF SYG IVP ONE (11:45)
--- NOTE | 2025-03-24 14:56 | HMCSR ---
APPROVED REPORT Height: 5 ft 3in Weight: 137 lbs TEST INDICATIONS Hypertension/HDD The imaging protocol used to acquire images was Rest Tc-99m/stress Tc-99m 1 day Consent: The procedure was explained and understood by the patient. Informerd consent was witnessed Rohit Piña RN First, low dose rest was performed then high dose stress. RESTING DATA: The resting ekg shows: NSR Rest SPECT myocardial perfusion imaging was performed in supine position minutes following the intra venous injection of 11 mCi of Tc-99 Sestamibi. Time of rest injection: 11:28: Date: 03/24/2025 PHARMACOLOGIC STRESS: Pharmacologic stress test was performed by injecting regadenoson 0.4 mg IV push followed by the intra venous injection of 28 mCi of Tc-99 Sestamibi. Time of stress injection: 13:15: Date: 03/24/2025 Heart Rate at time of stress injection: 59 bpm. Gated Stress SPECT was performed 60 minutes after stress injection. The images were gated to evaluate regional wall motion and calculate left ventricular ejection fracti on. STRESS DETAILS Reason for Termination: Infusion complete Stress Symptoms: Dyspnea Max HR Achieved: 82 bpm % of APMHR Achieved: 66 Max Blood Pressure: 147/65 mmHg Stress ECG: NSR Conclusion No obvious ischemia or infarct. There is GI artifact noted. LV ejection fraction of 71%. Normal LV size at rest and stress. Normal LV wall motion. No evidence of increased lung uptake.
== END | disposition home or self-care (01) ==
LOC: RAH 10:50
PROVIDERS: ATTEND Internal Medicine Cardiovascular Disease
DX: I25.10 Atherosclerotic heart disease of native coronary artery without angina pectoris (principal); I10 Essential (primary) hypertension; R06.00 Dyspnea, unspecified
CPT/HCPCS: 78452; 93017; J2785; A9500 ×2

== ENCOUNTER 2025-05-28 12:36 | Emergency (ER) | payer MEDICARE, MEDICAID ==
[~2025-05-28] VITALS: Ht 160 cm; Wt 67.1 kg
[2025-05-28 13:33] LABS: IMMATURE GRANULOCYTE ABSOLUTE 0.03 K/uL (0-1); NUCLEATED RED BLOOD CELLS 0.0 % (0.0-0.19); PLATELET COUNT (AUTO) 210 K/uL (130-400); RED BLOOD CELL COUNT(AUTO) 3.98 MIL/uL (4.00-5.50); RED CELL DISTRIBUTION WIDTH 12.0 % (11.0-15.5); WHITE BLOOD COUNT (AUTO) 6.4 K/uL (4.8-10.8)
--- NOTE | 2025-05-28 13:36 | EKG ---
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
[2025-05-28 13:42] LABS: CREATININE 1.1 mg/dL (0.5-1.0); GLOMERULAR FILTR. RATE CALC 53.0 mL/min (>90); GLUCOSE,RANDOM 127.0 mg/dL (70-105); SODIUM SERUM 139.0 mmol/L (136-145); UREA NITROGEN, BLOOD 26.0 mg/dL (7-18)
[2025-05-28 13:48] LABS: ASPARTATE AMINOTRANSFERASE 197.0 U/L (10-37); CREATINE KINASE, TOTAL 57.0 U/L (21-232); TOTAL PROTEIN, SERUM 7.2 g/dL (6.0-8.3)
[2025-05-28 13:52] LABS: APPEARANCE,URINE CLEAR (CLEAR); GLUCOSE, URINE (UA) >=1000 mg/dL (NEGATIVE); LEUKOCYTE ESTERASE ,URINE NEGATIVE Leu/uL (NEGATIVE); NITRATE,URINE NEGATIVE (NEGATIVE); OCCULT BLOOD,URINE NEGATIVE (NEGATIVE)
[2025-05-28 13:59] LABS: ADD UA MICROSCOPIC YES
[2025-05-28 16:00] VITALS: BP 134/61; PULSE 74; RESP 20; TEMP 98.6; O2SAT 99
[2025-05-28] MEDS: 0.9% NACL 500ML IV.SOLN 500 ML IV ONE (16:11)
--- NOTE | 2025-05-28 16:13 | ERN ---
ED Note History of Present Illness Stated Complaint: DIZZINESS Chief Complaint: Dizzy/Light Headed Time Seen by MD: 12:57 Dictation: 75-year-old female presenting to the emergency department with a episode of dizziness nausea patient had brief episode of abdominal pain which radiated towards her chest but has since resolved similar episodes in the past. Allergies: Coded Allergies: Iodine and Iodide Containing Produc (Verified Allergy, Unknown, 05/31/20) Home Meds Active Scripts Dicyclomine HCl (Bentyl) 10 Mg Cap, 1 CAP PO BID PRN for ABDOMINAL CRAMPING for 5 Days, #10 CAP 0 Refills Prov:IRENE CESAR MD 12/19/24 Pantoprazole Sodium (Protonix) 40 Mg Ectab, 1 TAB PO DAILY for 30 Days, #30 TAB 0 Refills Prov:IRENE CESAR MD 12/19/24 Peg 3350/Na Sulf,Bicarb,Cl/KCl (Golytely/Colyte Soln) 1 Ml Soln, 4000 ML PO ONC E, #4000 ML Prov:YAZMIN KNOX MD 10/04/22 Amlodipine Besylate (Amlodipine Besylate) 5 Mg Tablet, 7.5 MG PO DAILY for 90 Days, #135 TAB 3 Refills Prov:AIRAM VALDES MD 06/02/20 Doxazosin Mesylate (Doxazosin Mesylate) 2 Mg Tablet, 2 MG PO DAILY for 90 Days, #90 TAB 3 Refills Prov:AIRAM VALDES MD 06/02/20 Labetalol HCl (Labetalol HCl) 100 Mg Tablet, 100 MG PO BID for 90 Days, #180 TAB 3 Refills Prov:AIRAM VALDES MD 06/02/20 Aspirin (ASPIRIN 81 MG ECTAB) 81 Mg Ectab, 81 MG PO DAILY for 90 Days, #90 TAB.EC 3 Refills Prov:AIRAM VALDES MD 06/02/20 Prasugrel HCl (Prasugrel HCl) 10 Mg Tablet, 10 MG PO DAILY for 90 Days, #90 TAB 3 Refills Prov:AIRAM VALDES MD 06/02/20 Atorvastatin Calcium (Atorvastatin Calcium) 10 Mg Tablet, 10 MG PO DAILY for 90 Days, #90 TAB 3 Refills Prov:AIRAM VALDES MD 06/02/20 Reported Medications Labetalol HCl (Labetalol HCl) 200 Mg Tablet, 200 MG PO BID, TAB 10/04/22 Hydralazine HCl (Hydralazine HCl) 25 Mg Tablet, 25 MG PO BID, TAB 10/04/22 Penicillin V Potassium (Penicillin V Potassium) 500 Mg Tablet, 500 MG PO Q6 HRESP, TAB 10/04/22 Metformin HCl (Metformin HCl) 850 Mg Tablet, 850 MG PO BID, TAB 10/04/22 Linaclotide (Linzess) 145 Mcg Capsule, 145 MCG PO DAILY, CAP 10/04/22 Memantine HCl (Memantine HCl) 5 Mg Tablet, 5 MG PO BID, TAB 10/04/22 Solifenacin Succinate (Solifenacin Succinate) 10 Mg Tablet, 10 MG PO DAILY, TAB 10/04/22 Atorvastatin Calcium (LIPITOR) 10 Mg Tab, 10 MG PO HS, TAB 10/04/22 Insulin Detemir (Levemir Flextouch) 100 Unit/1 Ml Insuln.pen, 30 UNIT SQ BID, SYRINGE 10/04/22 Past Medical History Past Medical History: Arthritis, Diabetes-Type II, High Cholesterol, Heart Disease, Hypertension, Other Additional Past Medical Hx: sjorens Surgical History: Hysterectomy, Cholecystectomy Family History: HTN Social History: Negative, Lives with family Review of System Dictation Constitutional: Negative for fever,chills, and weight loss Eyes: Negative for injury, pain,redness, and discharge ENT: Negative for injury,pain or swelling Cardiovascular: Per HPI Respiratory: Negative for shortness of breath, cough, and wheezing, Abdomen/GI: Per HPI Back: Negative for injury and pain : Negative for injury, bleeding and discharge MS/Extremity: Negative for injury and deformity Skin: Negative for rash, and discoloration Neuro: Per HPI Initial Vital Sign VS Vital Signs Date Time Temp Pulse Resp B/P (MAP) Pulse Ox O2 Delivery O2 Flow Rate FiO2 05/28/25 12:40 98.8 56 16 147/62 100 0 05/28/25 12:44 Room Air* 21 Physical Exam Dictation General: awake, alert, NAD Head/Face: Normocephalic, atraumatic Eyes: PERRL, EOMI, vision at baseline ENT: oral cavity clear, TMs clear, no signs of infection Neck: Trachea midline, supple, no nuchal rigidity Cardiovascular: RRR, normal S1/S2, No MRGs, no JVD Respiratory: CTAB, no respiratory distress, No rales or wheezes Abdomen: Soft, non-tender, non-distended, normal bowel sounds, no guarding or rebound. Skin: Warm, dry, normal turgor, no rash MS/Extremity: Pulses equal, no cyanosis, neurovascular intact, FROM Neuro: COAx4, GCS 15, strength 5/5, CN 2-12 intact, normal cerebellar exam, normal gait, Psych: Normal behavior, mood, and affect normal Results (Laboratory/Radiology) Laboratory/Radiology Laboratory Tests Test 05/28/25 12:58 05/28/25 13:23 Urine Color LIGHT-YELLOW (YELLOW) Urine Appearance CLEAR (CLEAR) Urine pH 5.5 (5.0-8.0) Urine Specific [place]ord 1.023 (1.001-1.031) Urine Protein NEGATIVE mg/dL (NEGATIVE) Urine Glucose (UA) >=1000 mg/dL (NEGATIVE) H Urine Ketones NEGATIVE mg/dL (NEGATIVE) Urine Occult Blood NEGATIVE (NEGATIVE) Urine Nitrate NEGATIVE (NEGATIVE) Urine Bilirubin NEGATIVE mg/dL (NEGATIVE) Urine Urobilinogen 0.2 mg/dL (0.2-1.0) Urine Leukocyte Esterase NEGATIVE Carmen/uL Urine RBC 0-1 /HPF (0-1) Urine WBC 0-1 /HPF (0-1) Urine Bacteria RARE /HPF (None Seen) White Blood Count 6.4 K/uL (4.8-10.8) Red Blood Count 3.98 MIL/uL (4.00-5.50) L Hemoglobin 12.1 g/dL (12.0-16.0) Hematocrit 37.8 % (36-48) Mean Corpuscular Volume 95.0 fL (79-99) Mean Corpuscular Hemoglobin 30.4 pg (27.0-33.0) Mean Corpuscular Hemoglobin Concent 32.0 g/dL (32.0-36.0) Red Cell Distribution Width 12.0 % (11.0-15.5) Platelet Count 210 K/uL (130-400) Mean Platelet Volume 10.4 fL (7.5-10.5) Immature Granulocyte % (Auto) 0.5 % (0-1) Neutrophils (%) (Auto) 71.4 % (40.0-77.0) Lymphocytes (%) (Auto) 20.1 % (21.0-51.0) L Monocytes (%) (Auto) 5.5 % (3.0-13.0) Eosinophils (%) (Auto) 2.0 % (0.0-8.0) Basophils (%) (Auto) 0.5 % (0.0-5.0) Neutrophils # (Auto) 4.6 K/uL (1.8-7.7) Lymphocytes # (Auto) 1.3 K/uL (1.0-4.8) Monocytes # (Auto) 0.4 K/uL (0.1-1.0) Eosinophils # (Auto) 0.13 K/uL (0.00-0.70) Basophils # (Auto) 0.03 K/uL (0.00-0.20) Absolute Immature Granulocyte (auto 0.03 K/uL (0-1) Nucleated Red Blood Cells 0.0 % (0.0-0.19) Sodium Level 139 mmol/L (136-145) Potassium Level 4.7 mmol/L (3.5-5.1) Chloride Level 102 mmol/L (101-111) Carbon Dioxide Level 28 mmol/L (21-32) Blood Urea Nitrogen 26 mg/dL (7-18) H Creatinine 1.1 mg/dL (0.5-1.0) H Glomerular Filtration Rate Calc 53 mL/min (>90) Random Glucose 127 mg/dL (70-105) H Lactic Acid Level 1.1 mmol/L (0.8-2.5) Total Calcium 9.1 mg/dL (8.5-10.1) Total Bilirubin 0.3 mg/dL (0.2-1.0) Direct Bilirubin 0.2 mg/dL (0.0-0.3) Aspartate Amino Transf (AST/SGOT) 197 U/L (10-37) H Alanine Aminotransferase (ALT/SGPT) 112 U/L (12-78) H Alkaline Phosphatase 162 U/L (50-136) H Total Creatine Kinase 57 U/L (21-232) Troponin I High Sensitivity 6 ng/L (4-50) Total Protein 7.2 g/dL (6.0-8.3) Albumin 3.7 g/dL (3.5-5.0) Labs Reviewed?: Yes EKG Comment: Heart rate 55 normal sinus rhythm normal intervals no STEMI ED Course ED Course Orders Procedure Category Date Status Time 12 Lead Ekg Tracing- EKG 05/28/25 Complete Technical 13:15 Basic Metabolic Panel LAB 05/28/25 Complete 13:15 Cbc With Differential LAB 05/28/25 Complete 13:15 Hepatic Function Panel LAB 05/28/25 Complete 13:15 Creatine Kinase, Total LAB 05/28/25 Complete 13:15 Blood Cult HUNTER 05/28/25 In Process 13:15 Lactic Acid LAB 05/28/25 Complete 13:15 Troponin I High LAB 05/28/25 Complete Sensitivity 13:15 Urinalysis Profile LAB 05/28/25 Complete 13:15 Diazepam 5 Mg/Ml 2 Ml PHA 05/28/25 Complete Syg (Valium 5 Mg/M 15:00 0.9% Nacl 500ml PHA 05/28/25 Complete Iv.Soln (Ns 500ml 15:00 Current Medications Medications (Trade) Dose Ordered Sig/Ethan Route PRN Reason Start Time Stop Time Status Last Admin Dose Admin Diazepam (VALium 5 MG/ML 2 ML SYG) 5 mg ONCE ONCE IVP 05/28/25 15:00 05/28/25 15:01 DC Sodium Chloride 500 ml @ 0 mls/hr ONCE ONCE IV 05/28/25 15:00 05/28/25 15:01 DC Vital Signs Date Time Temp Pulse Resp B/P (MAP) Pulse Ox O2 Delivery O2 Flow Rate FiO2 05/28/25 14:23 60 20 174/62 99 Room Air* 0 21 05/28/25 12:44 98.8 56 16 147/62 100 Room Air* 0 21 05/28/25 12:40 98.8 56 16 147/62 100 0 Medical Decision Making MDM MDM: Differential diagnosis: Rationale: Tests considered and ordered secondary to shared decision making include: Previous outside records reviewed: Old ER visits. Risk of complication and/or morbidity or mortality of patient management: None Medications-Per medication reconciliation Need for hospitalization: Patient does not meet criteria for hospitalization. Need for emergency major/minor surgery: No There are no social concerns with this patient. Prescription drug management Prescriptions will include symptomatic care Patient's prior external medical records from other ER visits were reviewed by me as indicated. Prior testing and results from previous visits were reviewed. Prior tests were taken into account with medical decision making and resource utilization, independent historian/historians were used to obtain complete medical history. I independently interpreted the test that were performed, results were reviewed by me and considered findings on radiology if ordered. Medical management and examination interpretation discussions were had by me with other qualified healthcare professionals as indicated for the patient's care. 75-year-old female with episode of dizziness chest and abdominal pain which has resolved negative abdominal exam x2 no CT scan indicated, symptoms resolved so for discharge DX & DISP Disposition: Discharge Departure Impression: Primary Impression: Dizziness Condition: Stable Referrals: ALONA RINALDI MD (PCP) CARIDAD COPPOLA MD May 28, 2025 16:13
== END 2025-05-28 16:23 | disposition home or self-care (01) ==
LOC: EDH 12:36
DX: R42 Dizziness and giddiness (principal); E11.9 Type 2 diabetes mellitus without complications; E78.00 Pure hypercholesterolemia, unspecified; I11.9 Hypertensive heart disease without heart failure; M19.90 Unspecified osteoarthritis, unspecified site; Z91.041 Radiographic dye allergy status; Z79.82 Long term (current) use of aspirin; Z79.4 Long term (current) use of insulin; Z79.02 Long term (current) use of antithrombotics/antiplatelets; Z79.84 Long term (current) use of oral hypoglycemic drugs; Z79.899 Other long term (current) drug therapy; Z90.49 Acquired absence of other specified parts of digestive tract; Z90.710 Acquired absence of both cervix and uterus
CPT/HCPCS: 99284; 96374; 80076; 84484; 80048; 85025; 87040 ×2; 82550; 83605; 81001; 36415; 93005; J3360